=== PATIENT | female | born 1975 | race Caucasian/White ===

== ENCOUNTER 2024-08-23 20:12 | Emergency (ER) | payer OTHER ==
[~2024-08-23] VITALS: Ht 167.6 cm; Wt 95.3 kg
[~2024-08-23 20:12] MED LIST: BISACODYL5 MG PO; CEPHALEXIN500 M1 PO; DOCUSATE SODIU100 MG PO; GABAPENTIN100 MG PO; LANTUS100 UNITS/ SQ; LEVOFLOXACIN500 MG PO; LISINOPRIL-HCT1 EAC1 PO; METFORMIN HCL500 MG PO; METOCLOPRAMIDE10 MG PO; NEXIUM40 MG PO; NOVOLOG100 UNITS1 SQ; PROMETHAZINE12.5 M1 PO; QUESTRAN PACKET4 GM PO; SUCRALFATE1 GM PO; XANAX0.25 MG; ZOFRAN ODT4 MG PO
[2024-08-23 20:22] VITALS: PULSE 96; RESP 22; TEMP 98.6; O2SAT 100
[2024-08-23] MEDS ORDERED: TOBRAMYCIN 0.3% OPTH OINT 3.5 GM TUBE ONE (20:25)
[2024-08-23] MEDS ORDERED: AMOX TR-K CLV1 EAC2 PO (20:29)
[2024-08-23] MEDS: TOBRAMYCIN/DEXAMETHASONE(OPTH) 3.5 GM TUBE OP ONE (20:33)
== END 2024-08-23 20:37 | disposition home or self-care (01) ==
LOC: ER 20:29
DX: H57.12 Ocular pain, left eye (principal); S05.02XA Injury of conjunctiva and corneal abrasion without foreign body, left eye, initial encounter; J01.90 Acute sinusitis, unspecified; I10 Essential (primary) hypertension; E11.9 Type 2 diabetes mellitus without complications
CPT/HCPCS: 99282